=== PATIENT | male | born 1985 | race Caucasian/White ===

== ENCOUNTER 2017-07-18 17:54 | Emergency (ER) | payer OTHER ==
[~2017-07-18] VITALS: Ht 170.2 cm; Wt 68.0 kg
[~2017-07-18 17:54] MED LIST: ACETAMINOPHEN-1 EAC1 PO; AMOXICILLIN500 M1 PO; AZITHROMYCIN 2250 MG PO; ERYTHROMYCIN E3.5 G1 OPHTHALMIC; GENTAMICIN SU3 MG/ML OPHTHALMIC; MEDROLDOSEPACK PO; PENICILLIN VK250 MG PO; PENICILLIN VK500 M1; PENICILLIN VK500 M1 PO; PREVACID 30MG C30 M1; TESSALON PERLE100 MG PO; ULTRAM 50MG TAB50 MG PO; VENTOLIN HFA INH8 GM IH; VOLTAREN 0.1% EY5 M1 OP; ZPAK PO
[2017-07-18 18:59] LABS: INFLUENZA A ANTIGEN None Detected (None Detect); INFLUENZA B ANTIGEN None Detected (None Detect)
[2017-07-18 19:46] VITALS: BP 115/74
== END 2017-07-18 19:49 | disposition home or self-care (01) ==
LOC: M.ERS 17:54
PROVIDERS: Physician Assistant
DX: J06.9 Acute upper respiratory infection, unspecified (principal); K21.9 Gastro-esophageal reflux disease without esophagitis; F17.210 Nicotine dependence, cigarettes, uncomplicated; Z86.2 Personal history of diseases of the blood and blood-forming organs and certain disorders involving the immune mechanism

== ENCOUNTER 2017-07-22 19:08 | Emergency (ER) | payer OTHER ==
[~2017-07-22] VITALS: Ht 172.7 cm; Wt 68.0 kg
[2017-07-22 19:57] LABS: INFLUENZA A ANTIGEN None Detected (None Detect); INFLUENZA B ANTIGEN None Detected (None Detect)
[2017-07-22 20:03] LABS: ABSOLUTE LYMPHOCYTES 1.2 thou/uL (0.8-5.3); ABSOLUTE NEUTROPHILS 3.2 thou/uL (1.6-8.1); BASOPHILS 0.3 %; EOSINOPHILS 0.2 %; HEMATOCRIT 41.2 % (42.0-52.0); LYMPHOCYTES 21.9 %; MCH 28.9 pg (26.0-34.0); MCHC 34.1 g/dL (28.0-37.0); MCV 84.7 fL (80.0-100.0); MONOCYTES 18.4 %; MPV 7.6 fl. (7.2-11.1); NUCLEATED RBCS 0 /100WBC; PLATELET COUNT* 137 thou/uL (150-400); POLYS 59.2 %; RBC 4.86 mil/uL (4.50-6.00); RDW-CV 13.3 % (10.5-14.5); WBC 5.4 thou/uL (4.0-11.0)
[2017-07-22 20:25] LABS: CALCIUM 8.4 mg/dL (8.5-10.1); CREATININE 1.1 mg/dL (0.6-1.3); POTASSIUM 3.4 mmol/L (3.5-5.1)
[2017-07-22 20:30] LABS: ALBUMIN 3.6 g/dL (3.4-5.0); TOTAL BILIRUBIN 0.2 mg/dL (<0.1-1.0); TOTAL PROTEIN 7.5 g/dL (6.4-8.2)
[2017-07-22] MEDS ORDERED: PROAIR HFA8.5 GM INH (20:46)
[2017-07-22] MEDS ORDERED: ZOFRAN ODT4 MG PO (20:46)
[2017-07-22 21:00] VITALS: BP 102/67
== END 2017-07-22 21:05 | disposition home or self-care (01) ==
LOC: M.ERS 19:08
PROVIDERS: Nurse Practitioner Family
DX: B34.9 Viral infection, unspecified (principal); K21.9 Gastro-esophageal reflux disease without esophagitis; F17.210 Nicotine dependence, cigarettes, uncomplicated

== ENCOUNTER 2017-10-31 10:54 | Emergency (ER) | payer OTHER ==
[~2017-10-31] VITALS: Ht 172.7 cm; Wt 68.0 kg
[~2017-10-31 10:54] MED LIST changes: +PROAIR HFA8.5 GM INH; +ZOFRAN ODT4 MG PO
[2017-10-31] MEDS ORDERED: ERYTHROMYCIN E3.5 G2 TOP ×2 (11:39→11:49)
[2017-10-31 11:54] VITALS: BP 144/70
== END 2017-10-31 11:54 | disposition home or self-care (01) ==
LOC: M.ERS 10:54
DX: H16.002 Unspecified corneal ulcer, left eye (principal); K21.9 Gastro-esophageal reflux disease without esophagitis; F17.210 Nicotine dependence, cigarettes, uncomplicated; Z86.2 Personal history of diseases of the blood and blood-forming organs and certain disorders involving the immune mechanism

== ENCOUNTER 2018-05-06 14:37 | Emergency (ER) | payer OTHER ==
[~2018-05-06] VITALS: Ht 167.6 cm; Wt 72.6 kg
[~2018-05-06 14:37] MED LIST changes: +ERYTHROMYCIN E3.5 G2 TOP
[2018-05-06] MEDS ORDERED: ZPAK PO (15:04)
[2018-05-06 15:24] VITALS: BP 117/76
== END 2018-05-06 15:26 | disposition home or self-care (01) ==
LOC: M.ERS 14:37
DX: J20.9 Acute bronchitis, unspecified (principal); K21.9 Gastro-esophageal reflux disease without esophagitis; F17.210 Nicotine dependence, cigarettes, uncomplicated

== ENCOUNTER 2019-03-16 14:16 | Emergency (ER) | payer OTHER ==
[~2019-03-16] VITALS: Ht 167.6 cm; Wt 72.6 kg
[2019-03-16] MEDS ORDERED: TESSALON PERLE100 MG PO (15:42)
[2019-03-16] MEDS ORDERED: AUGMENTIN 875-1 EACH PO (15:42)
[2019-03-16] MEDS ORDERED: NABUMETONE 750750 M1 PO (15:44)
[2019-03-16 15:55] VITALS: BP 115/75
== END 2019-03-16 15:56 | disposition home or self-care (01) ==
LOC: M.ERS 14:16
DX: S61.431A Puncture wound without foreign body of right hand, initial encounter (principal); L08.89 Other specified local infections of the skin and subcutaneous tissue; J20.9 Acute bronchitis, unspecified; F17.210 Nicotine dependence, cigarettes, uncomplicated; K21.9 Gastro-esophageal reflux disease without esophagitis; Z86.2 Personal history of diseases of the blood and blood-forming organs and certain disorders involving the immune mechanism; Z98.52 Vasectomy status; W22.8XXA Striking against or struck by other objects, initial encounter; Y92.89 Other specified places as the place of occurrence of the external cause; Y99.0 Civilian activity done for income or pay; Y99.8 Other external cause status

== ENCOUNTER 2020-02-18 14:25 | Emergency (ER) | payer OTHER ==
[~2020-02-18] VITALS: Ht 170.2 cm; Wt 74.8 kg
[~2020-02-18 14:25] MED LIST changes: +AUGMENTIN 875-1 EACH PO; +NABUMETONE 750750 M1 PO
[2020-02-18 16:00] LABS: ABSOLUTE BASOPHILS 0.1 thou/uL (0.0-0.2); ABSOLUTE EOSINOPHILS 0.1 thou/uL (0.0-0.7); ABSOLUTE LYMPHOCYTES 2.3 thou/uL (0.8-5.3); ABSOLUTE MONOCYTES 0.7 thou/uL (0.0-1.2); HEMATOCRIT 43.7 % (42.0-52.0); LYMPHOCYTES 22.9 %; MCH 29.7 pg (26.0-34.0); MCHC 34.3 g/dL (28.0-37.0); MCV 86.6 fL (80.0-100.0); MONOCYTES 6.4 %; MPV 7.3 fl. (7.2-11.1); NUCLEATED RBCS 0 /100WBC; PLATELET COUNT* 243 thou/uL (150-400); POLYS 68.7 %; RBC 5.04 mil/uL (4.50-6.00); RDW-CV 13.5 % (10.5-14.5); WBC 10.2 thou/uL (4.0-11.0)
[2020-02-18 16:08] LABS: POTASSIUM 3.3 mmol/L (3.5-5.1)
[2020-02-18 16:11] LABS: APTT 27.7 Seconds (25.0-31.3); INR 1.1; PROTIME 11.4 Seconds (9.20-11.50)
[2020-02-18 16:22] LABS: ALBUMIN 4.1 g/dL (3.4-5.0); CK-MB MASS 0.6 ng/mL (<0.5-3.6); MAGNESIUM 1.9 mg/dL (1.8-2.4); TOTAL BILIRUBIN 0.5 mg/dL (<0.1-1.0); TOTAL PROTEIN 7.6 g/dL (6.4-8.2)
[2020-02-18 16:51] VITALS: BP 114/70
--- NOTE | 2020-02-19 10:28 | EKG ---
[place] [address] ELECTROCARDIOGRAM REPORT Name: CHRISTY KRUGER Room: [facility]#: [id number] Admission: 02/18/20 Attend Phys: Discharge: 02/18/20 Date of : 85 Date of Service: 02/18/20 1433 Report #: [id number] THIS REPORT FOR: //name// [facility] ED Test Date: 2020-02-18 Test Time: 14:33:32 Pat Name: CHRISTY KRUGER Department: Room: Gender: Health Coordinator: S : 1985 Requested By: Marcos Viramontes Order Number: [id number] Sonja MD: Fracisco Armijo Measurements Intervals [place] Rate: 74 P: 64 IN: 142 QRS: 83 QRSD: 97 T: 60 QT: 382 QTc: 424 Interpretive Statements Sinus rhythm ST elev, probable normal early repol pattern Compared to ECG 08/18/2013 23:00:18 ST (T wave) deviation now present Electronically Signed On 02-19-2020 10:28:16 CDT by Fracisco Armijo [email or web address] <ELECTRONICALLY SIGNED> By: Fracisco Armijo MD, FACC 02/19/20 1028 1433 1433 Fracisco Armijo MD, [facility] /EPI
== END 2020-02-18 16:52 | disposition home or self-care (01) ==
LOC: M.ERS 14:25
PROVIDERS: Family Medicine
DX: R07.89 Other chest pain (principal); K21.9 Gastro-esophageal reflux disease without esophagitis; F17.210 Nicotine dependence, cigarettes, uncomplicated; Z90.89 Acquired absence of other organs

== ENCOUNTER 2020-07-14 10:03 | Emergency (ER) | payer OTHER ==
[~2020-07-14] VITALS: Ht 167.6 cm; Wt 70.3 kg
[2020-07-14 10:13] VITALS: BP 118/75
== END 2020-07-14 11:47 | disposition left against medical advice (07) ==
LOC: M.ERS 10:03
DX: R10.9 Unspecified abdominal pain (principal); Z53.21 Procedure and treatment not carried out due to patient leaving prior to being seen by health care provider